=== PATIENT | female | born 1970 | race Caucasian/White ===

== ENCOUNTER 2016-09-15 23:15 | Emergency (ER) | payer MEDICAID ==
[~2016-09-15] VITALS: Ht 165.1 cm; Wt 90.7 kg
[~2016-09-15 23:15] MED LIST: THYR30TA21 PO
[2016-09-16] MEDS ORDERED: DICYCLOMINE HCL 10 MG CAPSULE PO ONE ×2 (00:21)
[2016-09-16 00:30] LABS: BASOPHILS # (AUTO) 0.1 /CMM (0.0-0.2); BASOPHILS % (AUTO) 0.6 % (0.0-2.0); EOSINOPHILS # (AUTO) 0.1 /CMM (0.0-0.7); EOSINOPHILS % (AUTO) 0.6 % (0.0-6.0); HEMATOCRIT 40 % (33-45); HEMOGLOBIN 13.6 g/dL (11.5-14.8); LYMPHOCYTES # (AUTO) 3.8 /CMM (0.8-4.8); LYMPHOCYTES % (AUTO) 41.5 % (20.0-44.0); MEAN CORPUSCULAR HEMOGLOBIN 29 PG (26.0-33.0); MEAN CORPUSCULAR HGB CONC 34 g/dl (31.0-36.0); MEAN CORPUSCULAR VOLUME 85 fL (82-100); MONOCYTES # (AUTO) 0.8 /CMM (0.1-1.30); MONOCYTES % (AUTO) 9.3 % (2.0-12.0); NEUTROPHILS # (AUTO) 4.3 /CMM (1.8-8.9); PLATELET COUNT (AUTO) 231 /CMM (150-450); RDW COEFFICIENT OF VARIATION 13.6 (11.5-15.0); RED BLOOD CELL COUNT(AUTO) 4.75 MIL/uL (4.0-5.2)
[2016-09-16 00:31] LABS: CREATININE 1.1 mg/dL (0.6-1.3); POTASSIUM 4.3 mmol/L (3.5-5.1)
[2016-09-16 00:37] LABS: ALBUMIN 3.5 g/dL (3.4-5.0); BILIRUBIN,DIRECT 0.1 mg/dL (0.0-0.2); BILIRUBIN,TOTAL 0.7 mg/dL (0.2-1.0); TOTAL PROTEIN, SERUM 7.4 g/dL (6.4-8.2)
[2016-09-16 01:37] VITALS: BP 134/89
== END 2016-09-16 01:37 | disposition home or self-care (01) ==
LOC: ER 23:17
DX: R10.10 Upper abdominal pain, unspecified (principal); E03.9 Hypothyroidism, unspecified; Z90.49 Acquired absence of other specified parts of digestive tract; Z88.5 Allergy status to narcotic agent
CPT/HCPCS: 36415; 74176; 80048; 80076; 83690; 84703; 85025; 99285; A4606; Z7610

== ENCOUNTER 2018-10-30 21:15 | Emergency (ER) | payer MEDICAID ==
[~2018-10-30] VITALS: Ht 165.1 cm; Wt 72.6 kg
--- NOTE | 2018-10-30 21:30 | NUR ---
PT TO ER C/O VAGINAL PAIN X 5 DAY S/P BIOPSY. NO SIGNS OF DISTRESS NOTED. PT VITAL SIGNS STABLE. PT DENIES ANY VAGINAL BLEEDING OR DISCAHRGE. PT TO ER BED
[2018-10-30 22:12] LABS: APPEARANCE,URINE Clear (CLEAR); BILIRUBIN,URINE Negative (NEGATIVE); BLOOD, URINE Trace-intact Ery/uL (NEGATIVE); COLOR,URINE Yellow (YELLOW); KETONES,URINE Negative (NEGATIVE); LEUKOCYTE ESTERASE ,URINE Negative (NEGATIVE); NITRITE, URINE Negative (NEGATIVE); PH,URINE 8.5 (5.0-8.0); PROTEIN,URINE Negative (NEGATIVE); UGLUCOSE Negative (NEGATIVE); UROBILINOGEN,URINE 0.2 EU/dL (0.2)
[2018-10-30] MEDS ORDERED: CEFTRIAXONE 1GM BAG (ER ONLY) 50 ML IV ONE (22:30)
[2018-10-30 22:32] LABS: BACTERIA,URINE Few /HPF (None Seen); RBC,URINE 0-2 /HPF (0-2); SQUAMOUS EPITHELIAL CELL,UR Few /HPF (None Seen); WBC,URINE 0-2 /HPF (0-3)
[2018-10-30 22:43] LABS: BASOPHILS % (AUTO) 0.5 % (0.0-2.0); EOSINOPHILS % (AUTO) 1.1 % (0.0-6.0); HEMATOCRIT 38 % (33-45); HEMOGLOBIN 12.9 g/dL (11.5-14.8); LYMPHOCYTES # (AUTO) 3.6 /CMM (0.8-4.8); LYMPHOCYTES % (AUTO) 39.6 % (20.0-44.0); MEAN CORPUSCULAR HGB CONC 34 g/dl (31.0-36.0); MEAN CORPUSCULAR VOLUME 86 fL (82-100); MONOCYTES # (AUTO) 0.8 /CMM (0.1-1.30); MONOCYTES % (AUTO) 8.5 % (2.0-12.0); NEUTROPHILS # (AUTO) 4.5 /CMM (1.8-8.9); NEUTROPHILS % (AUTO) 50.3 % (43.0-81.0); PLATELET COUNT (AUTO) 213 /CMM (150-450); RED BLOOD CELL COUNT(AUTO) 4.41 MIL/uL (4.0-5.2)
[2018-10-30] MEDS ORDERED: CEFTRIAXONE 1GM BAG (ER ONLY) 0 ML IV ONE (22:49)
[2018-10-30 22:53] LABS: CREATININE 0.8 mg/dL (0.6-1.3); POTASSIUM 4.1 mmol/L (3.5-5.1)
[2018-10-30 22:59] LABS: ALBUMIN 3.2 g/dL (3.4-5.0); BILIRUBIN,DIRECT 0.1 mg/dL (0.0-0.2); BILIRUBIN,TOTAL 0.4 mg/dL (0.2-1.0); TOTAL PROTEIN, SERUM 6.9 g/dL (6.4-8.2)
--- NOTE | 2018-10-31 02:15 | NUR ---
PT OK TO BE DISCHARGED PER DR DELA CRUZ. IV removed. Catheter intact and site benign. Pressure and 4x4 applied to site. No bleeding noted.Patient discharged to home in stable condition. Written and verbal after care instructions given. Patient verbalizes understanding of instruction.Patient is awake and alert to self, day, and place. PT ambulatory with a steady gait
[2018-10-31 04:25] VITALS: BP 125/79
== END 2018-10-31 04:26 | disposition home or self-care (01) ==
LOC: ER 21:19
DX: R10.2 Pelvic and perineal pain (principal); E03.9 Hypothyroidism, unspecified; Z90.49 Acquired absence of other specified parts of digestive tract; Z88.5 Allergy status to narcotic agent; Z60.2 Problems related to living alone
CPT/HCPCS: 36415; 76856-TC; 80048-TC; 80076-TC; 81000-TC; 84703-TC; 85025-TC; 85730-TC; J0696